=== PATIENT | female | born 1955 | race Two or more races ===

== ENCOUNTER 2019-10-19 06:51 | Day surgery (SDC) | payer OTHER ==
[~2019-10-19 06:51] MED LIST: AVALID PO; CLONAZEPAM1 MG PO; HYDROCHLOROTH12.5 MG PO
== END 2019-10-19 13:30 | disposition home or self-care (01) ==
LOC: CIR.AMB 06:51
PROVIDERS: ATTEND Specialist
DX: D24.1 Benign neoplasm of right breast (principal); Z20.828 Contact with and (suspected) exposure to other viral communicable diseases